=== PATIENT | female | born 1990 | race Caucasian/White ===

== ENCOUNTER 2018-06-02 10:26 | Emergency (ER) | payer MEDICAID ==
[~2018-06-02] VITALS: Ht 167.6 cm; Wt 90.0 kg
[~2018-06-02 10:26] MED LIST: FERR325C PO; IBUP-779 PO; MULT-1116 PO
[2018-06-02] MEDS ORDERED: KETOROLAC 30MG/ML VIAL IM ONE (12:30)
[2018-06-02 15:10] VITALS: BP 130/75
== END 2018-06-02 15:11 | disposition home or self-care (01) ==
LOC: ER 10:26
DX: S93.491A Sprain of other ligament of right ankle, initial encounter (principal); V23.4XXA Motorcycle driver injured in collision with car, pick-up truck or van in traffic accident, initial encounter; Y93.89 Activity, other specified; Y92.89 Other specified places as the place of occurrence of the external cause; Y99.8 Other external cause status
CPT/HCPCS: 73610; 81025; 96372; 99283; J1885